=== PATIENT | male | born 1975 | race African-American/Black ===

== ENCOUNTER 2017-01-18 15:45 | Emergency (ER) | payer OTHER ==
[~2017-01-18] VITALS: Ht 180.3 cm; Wt 97.0 kg
[2017-01-18 15:53] VITALS: BP 159/60
== END 2017-01-18 23:00 | disposition left against medical advice (07) ==
LOC: ER 23:00
DX: Z53.21 Procedure and treatment not carried out due to patient leaving prior to being seen by health care provider (principal)